=== PATIENT | male | born 2005 | race Caucasian/White ===

== ENCOUNTER 2024-01-05 01:41 | Emergency (ER) | payer OTHER ==
[2024-01-05] MEDS ORDERED: NA CHLORIDE 0.9% 1,000 ML ONE (02:07)
[2024-01-05] MEDS ORDERED: LIDOCAINE 1% 20 ML MDV ONE (02:47)
[2024-01-05 03:21] LABS: ALT/SGPT 15 U/L (16-61); AST/SGOT 11 U/L (15-37); Albumin 3.7 g/dL (3.4-5.0); Albumin/Globulin Ratio 1.2 (1.1-1.8); Alkaline Phosphatase 56 U/L (45-117); Anion Gap 7.6 mEq/L (5.0-15.0); BUN Blood Urea Nitrogen 9 mg/dL (7-18); Bicarbonate 26 mEq/L (21-32); Bilirubin Direct 0.2 mg/dL (0-0.2); Bilirubin Indirect, Calculated 0.8 mg/dL (0.2-0.8); Globulin 3.1 g/dL (2.3-3.5); Glomerular Filtration Rate 124 ml/min (=/>90); Glucose Level 103 mg/dL (74-106); Magnesium 1.9 mg/dL (1.6-2.4); Potassium 3.6 mEq/L (3.5-5.1); Protein, Total 6.8 g/dL (6.4-8.2); Sodium Level 138 mEq/L (136-145)
[2024-01-05 03:23] LABS: Troponin High Sensitivity < 3.0 pg/mL (<58.9)
[2024-01-05 03:27] LABS: Absolute Lymphocytes (CBC) 0.9 K/uL (0.7-4.9); Absolute Monocytes 0.8 K/uL (0.1-1.3); Absolute Neutrophil 9.6 K/uL (1.8-8.0); Basophils % 0.2 % (0-1.3); Eosinophils % 0.1 % (0-4.4); Hematocrit 41.9 % (39.6-49.0); Hemoglobin 14.3 g/dL (13.6-17.9); Lymphocytes % 8.2 % (15.3-44.8); MCH 31.1 pg (27.0-35.0); MCHC 34.1 g/dL (32.0-36.0); MCV 91.1 fL (80-100); MPV 7.1 fL (7.6-11.3); Neutrophils % 84.5 % (41.7-73.7); Nucleated RBC Absolute Count 0.1 (0-0); Nucleated Red Blood Cells % 0.4 % (0-0); Platelets 254 thou/uL (152-406); Red Cell Distribution Width 13.8 % (12.1-15.2)
[2024-01-05] MEDS ORDERED: NEOMYCIN/BAC/POLY OPTH 3.5GM ONE (05:20)
--- NOTE | 2024-01-05 05:29 | EDPHYS ---
Physician Documentation [facility] Name: Armando Cohn Age: 18 yrs Sex: Male : 2005 Arrival Date: 01/05/2024 Time: 01:41 Bed 26 Private MD: ED Physician Ross Mullins HPI: 01/04 01:50 This 18 yrs old Male presents to ER via Unassigned with complaints of Head sp4 Injury With LOC-Adult, Laceration To Head. 23:12 18-year-old male presents to the ER with complaint of head injury with laceration to sp4 forehead. Patient states he had syncopal episode at home and also sustained a fall against the floor causing laceration to right forehead. Patient reports history of prior syncope and workup while he was in fifth grade.. Historical: - Allergies: 01:57 No Known Allergies; bm8 - Home Meds: 01:57 None [Active]; bm8 - PMHx: 01:57 None; bm8 - PSHx: 01:58 facial reconstruction; bm8 - Immunization history:: Adult Immunizations up to date. - Infectious Disease History:: Denies. - Social history:: Smoking status: Reported history of juuling and/or vaping. Patient/guardian denies using alcohol, street drugs. - Family history:: not pertinent. ROS: 23:12 Constitutional: Negative for fever, chills, and weight loss, positive for syncope and sp4 collapse, positive for fall, positive for forehead laceration 23:12 All other systems are negative, Exam: 04:45 ECG was reviewed by the Attending Physician. EKG at 0209 normal sinus rhythm with a sp4 rate of 71, rightward axis and LVH. 23:12 Constitutional: This is a well developed, well nourished patient who is awake, alert, sp4 and in no acute distress. Head/Face: Normocephalic, positive right forehead contusion on the right forehead irregular laceration with L-shaped inferior component, no active bleeding laceration measures 4 cm Eyes: Pupils equal round and reactive to light, extra-ocular motions intact. Lids and lashes normal. Conjunctiva and sclera are not injected. Cornea within normal limits. Periorbital areas with no swelling, redness, or edema. ENT: Nares patent. No nasal discharge, no septal abnormalities noted. Tympanic membranes are normal and external auditory canals are clear. Oropharynx with no redness, swelling, or masses, exudates, or evidence of obstruction, uvula midline. Mucous membranes moist. Neck: Trachea midline, no thyromegaly or masses palpated, and no cervical lymphadenopathy. Supple, full range of motion without nuchal rigidity, or vertebral point tenderness. Chest/axilla: Normal chest wall appearance and motion. Nontender with no deformity. No lesions are appreciated. Cardiovascular: Regular rate and rhythm with a normal S1 and S2. No gallops, murmurs, or rubs. Normal PMI, no JVD. No pulse deficits. Respiratory: Lungs have equal breath sounds bilaterally, clear to auscultation and percussion. No rales, rhonchi or wheezes noted. No increased work of breathing, no retractions or nasal flaring. Abdomen/GI: Soft, with normal bowel sounds. No distension or tympany. No guarding or rebound. No evidence of tenderness throughout. Back: No spinal tenderness. No costovertebral tenderness. Skin: Warm, dry with normal turgor. Normal color with no rashes, no lesions, and no evidence of cellulitis. MS/ Extremity: Pulses equal, no cyanosis. Neurovascular intact. Full, normal range of motion. Neuro: Awake and alert, GCS 15, oriented to person, place, time, and situation. Cranial nerves II-XII grossly intact. Motor strength 5/5 in all extremities. Sensory grossly intact. Psych: Awake, alert, with orientation to person, place and time. Behavior, mood, and affect are within normal limits Vital Signs: 01:53 BP 157 / 93; Pulse 73; Resp 18; Temp 98.5; Pulse Ox 100% ; Weight 77.11 kg; Height 6 bm8 ft. 0 in. ; Pain 1/10; 03:44 BP 91 / 42; Pulse 58; Resp 14; Temp 98.5; Pulse Ox 98% ; Pain 1/10; bm8 04:35 BP 87 / 51; Pulse 48; Resp 15; Temp 98.5; Pulse Ox 97% on R/A; Pain 0/10; bm8 05:26 BP 96 / 64; Pulse 68; Resp 14; Temp 98.5; Pulse Ox 100% on R/A; Pain 0/10; bm8 01:53 Body Mass Index 23.06 (77.11 kg, 182.88 cm) bm8 01:53 Pain Scale: Adult bm8 03:44 Pain Scale: Adult bm8 04:35 Pain Scale: Adult bm8 05:26 Pain Scale: Adult bm8 [place] Coma Score: 01:59 Eye Response: spontaneous(4). Motor Response: obeys commands(6). Verbal Response: bm8 oriented(5). Total: 15. 03:44 Eye Response: spontaneous(4). Motor Response: obeys commands(6). Verbal Response: bm8 oriented(5). Total: 15. 04:45 Eye Response: spontaneous(4). Motor Response: obeys commands(6). Verbal Response: sp4 oriented(5). Total: 15. 05:26 Eye Response: spontaneous(4). Motor Response: obeys commands(6). Verbal Response: bm8 oriented(5). Total: 15. 05:32 Eye Response: spontaneous(4). Motor Response: obeys commands(6). Verbal Response: sp4 oriented(5). Total: 15. Laceration: 05:31 Wound Repair of 4cm ( 1.6in ) subcutaneous laceration to forehead -right side of the sp4 forehead just above the right eyebrow 4 cm laceration irregular shaped . Irregularly shaped.. Hemostasis noted.. Distal neuro/vascular/tendon intact. Anesthesia: Wound infiltrated with 10 mls of 1% lidocaine. Wound prep: Moderate cleansing by me, Copious irrigation. Skin closed with 19 6-0 Prolene using interrupted sutures and sterile technique. Dressed with Neosporin. Patient tolerated well. MDM: 01:56 Patient medically screened. sp4 04:44 ED course: COMPARISON: CT Head/Brain Without Contrast 01/22/2016 images without report sp4 TECHNIQUE: Head/brain axial images acquired without contrast. Coronal and sagittal reformats created. Exam performed according to departmental dose-optimization program which includes automated exposure control, adjustment of mA and/or kV according to patient size, and/or use of iterative reconstruction technique. FINDINGS: At initial time of dictation the coronal and sagittal series are markedly limited and nearly entirely cut off. When appropriate coronal and sagittal images are created then an addendum will be made. No midline shift, mass effect, intracranial hemorrhage, or hydrocephalus. Brain parenchyma unremarkable. Paranasal sinuses clear. Mastoid air cells clear. No skull fracture or significant skull lesion. IMPRESSION: 1. At initial time of dictation the coronal and sagittal series are markedly limited. When appropriate coronal and sagittal images are created then an addendum will be made. 2. Otherwise, grossly unremarkable CT head/brain without contrast. . 05:32 Data reviewed: vital signs, nurses notes. 23:12 Differential diagnosis: Contusion of Hematoma on Laceration of Intracranial bleed- sp4 Concussion cerebral contusion. 01/04 01:56 Order name: Basic Metabolic Panel; Complete Time: 03:42 sp4 01/04 01:56 Order name: CBC with Diff; Complete Time: 03:42 4 01/04 01:56 Order name: LFT's; Complete Time: 03:42 4 01/04 01:56 Order name: Magnesium; Complete Time: 03:42 4 01/04 01:56 Order name: Troponin HS; Complete Time: 03:42 sp4 01/04 01:57 Order name: CT Head Brain wo Cont 4 01/04 01:50 Order name: Dressing - Wound; Complete Time: 02:57 4 01/04 01:50 Order name: Gloves, Sterile; Complete Time: 02:57 4 01/04 01:50 Order name: Setup Suture Tray; Complete Time: 02:57 4 01/04 01:56 Order name: Cardiac monitoring; Complete Time: 02:12 4 01/04 01:56 Order name: EKG - Nurse/Tech; Complete Time: 02:12 4 01/04 01:56 Order name: IV Saline Lock; Complete Time: 02:12 01/04 01:56 Order name: Labs collected and sent; Complete Time: 02:12 EC:45 Rate is 71 beats/min. Rhythm is regular, Normal Sinus Rhythm. QRS [place] is Normal. Right sp4 axis deviation noted. IA interval is normal. QRS interval is normal. QT interval is normal. No Q waves. T waves are Normal. No ST changes noted. Clinical impression: LVH and No evidence of ischemia. Interpreted by me. Reviewed by me. Administered Medications: 02:12 Drug: NS 0.9% IV 1000 ml IV at 1 bolus Per protocol; 1000 mL bolus Route: IV; Rate: 1 bm8 bolus; Site: right forearm; 05:07 Follow up: Response: No adverse reaction; IV Status: Completed infusion; IV Intake: bm8 1000ml 05:07 Drug: Lidocaine Infiltration (1 %) 20 ml 20 ml Infiltration once; to bedside {Note: bm8 administered by Dr. Mullins.} Volume: 20 ml; Route: Infiltration; Site: wound; 05:26 Drug: Erpqpqyh-Efwsqdanzg-Gugdpiryt Topical Ointment 1 application Topical once Route: bm8 Topical; Site: affected area; 05:26 Follow up: Response: No adverse reaction bm8 Disposition Summary: 01/05/24 05:28 Discharge Ordered Problem: new sp4 Symptoms: have improved sp4 Condition: Stable sp4 Diagnosis - Syncope and collapse,, acute head injury, forehead laceration, sp4 Followup: sp4 - With: Lexx Thompson MD - When: 7 - 10 days - Reason: Recheck today's complaints Discharge Instructions: - Discharge Summary Sheet sp4 - Facial Laceration, Nlxg-zh-Ikex sp4 Forms: - Patient Portal Instructions sp4 Signatures: Dispatcher [employer] Ross Olivares MD MD sp4 Roberto Salgado, RN RN bm8 Corrections: (The following items were deleted from the chart) 01:57 01:57 BASIC METABOLIC PANEL+C.LAB.BRZ ordered. EDMS EDMS 01:57 01:57 CBC+H.LAB.BRZ ordered. EDMS EDMS 01:57 01:57 HEPATIC FUNCTION+C.LAB.BRZ ordered. EDMS EDMS 01:57 01:57 MAGNESIUM+C.LAB.BRZ ordered. EDMS EDMS 01:57 01:57 Troponin High Sensitivity+C.LAB.BRZ ordered. EDMS EDMS
--- NOTE | 2024-01-05 05:29 | ER ---
Nurse's Notes [facility] Name: Armando Cohn Age: 18 yrs Sex: Male : 2005 Arrival Date: 01/05/2024 Time: 01:41 Bed 26 Private MD: Diagnosis: Syncope and collapse,, acute head injury, forehead laceration, Presentation: 01/04 01:51 Chief complaint: Patient states: I felt tired, kind of like I do when I am dehydrated, vc1 I stood up to go to the couch and passed out hitting my head on the wall. 01:53 Chief complaint: Patient states: I passed out and hit the front of my head. Coronavirus bm8 screen: At this time, the client does not indicate any symptoms associated with coronavirus-19. Ebola Screen: Patient negative for fever greater than or equal to 101.5 degrees Fahrenheit, and additional compatible Ebola Virus Disease symptoms Patient denies exposure to infectious person. Patient denies travel to an Ebola-affected area in the 21 days before illness onset. No symptoms or risks identified at this time. Initial Sepsis Screen: Does the patient meet any 2 criteria? No. Patient's initial sepsis screen is negative. Does the patient have a suspected source of infection? No. Patient's initial sepsis screen is negative. Risk Assessment: Do you want to hurt yourself or someone else? Patient reports no desire to harm self or others. Onset of symptoms was January 05, 2024 at 00:00. 01:53 Method Of Arrival: Ambulatory bm8 01:53 Acuity: JAMIE 3 bm8 Triage Assessment: 01:58 General: Appears in no apparent distress. comfortable, Behavior is calm, cooperative, bm8 appropriate for age. Pain: Complains of pain in forehead Pain does not radiate. Pain currently is 1 out of 10 on a pain scale. EENT: No deficits noted. No signs and/or symptoms were reported regarding the EENT system. Neuro: No deficits noted. Level of Consciousness is awake, alert, obeys commands, Oriented to person, place, time, situation, Appropriate for age. Cardiovascular: No deficits noted. Capillary refill < 3 seconds Patient's skin is warm and dry. Respiratory: Airway is patent Respiratory effort is even, unlabored, Respiratory pattern is regular, symmetrical. GI: No deficits noted. No signs and/or symptoms were reported involving the gastrointestinal system. : No deficits noted. No signs and/or symptoms were reported regarding the genitourinary system. Derm:. Musculoskeletal: No deficits noted. No signs and/or symptoms reported regarding the musculoskeletal system. Injury Description: Laceration sustained to forehead is clean, full thickness, 0.5 to 2.5 cm long, not bleeding, was sustained 1-2 hours ago. Historical: - Allergies: :57 No Known Allergies; bm8 - Home Meds: :57 None [Active]; bm8 - PMHx: :57 None; bm8 - PSHx: 01:58 facial reconstruction; bm8 - Immunization history:: Adult Immunizations up to date. - Infectious Disease History:: Denies. - Social history:: Smoking status: Reported history of juuling and/or vaping. Patient/guardian denies using alcohol, street drugs. - Family history:: not pertinent. Screenin:59 [facility] ED Fall Risk Assessment (Adult) History of falling in the last 3 months, bm8 including since admission Yes- single mechanical fall (1 pt) Confusion or Disorientation No (0 pts) Intoxicated or Sedated No (0 pts) Impaired Gait No (0 pts) Mobility Assist Device Used No (0 pt) Altered Elimination No (0 pt) Score/Fall Risk Level 0 - 2 = Low Risk Oriented to surroundings, Maintained a safe environment, Educated pt \T\ family on fall prevention, incl call for assistance when getting out of bed, Assessed \T\ reinforced patient's understanding of fall precautions. Abuse screen: Denies threats or abuse. Nutritional screening: No deficits noted. Tuberculosis screening: No symptoms or risk factors identified. Assessment: :59 Reassessment: see triage note. bm8 03:44 Reassessment: Patient appears in no apparent distress at this time. Patient and/or bm8 family updated on plan of care and expected duration. Pain level reassessed. Patient is alert, oriented x 3, equal unlabored respirations, skin warm/dry/pink. awaiting results from CT Patient denies pain at this time. 04:35 Reassessment: Patient and/or family updated on plan of care and expected duration. Pain bm8 level reassessed. Patient is alert, oriented x 3, equal unlabored respirations, skin warm/dry/pink. pt updated on cause of wait. pt is resting with eyes closed breathing is even unlabored at this time. Patient denies pain at this time. 05:26 General: Appears in no apparent distress. comfortable, Behavior is calm, cooperative, bm8 appropriate for age. Pain: Denies pain. Neuro: No deficits noted. Level of Consciousness is awake, alert, obeys commands, Oriented to person, place, time, situation. Cardiovascular: Denies chest pain, Capillary refill < 3 seconds Patient's skin is warm and dry. Respiratory: Airway is patent Trachea midline Respiratory effort is even, unlabored, Respiratory pattern is regular, symmetrical. Vital Signs: 01:53 BP 157 / 93; Pulse 73; Resp 18; Temp 98.5; Pulse Ox 100% ; Weight 77.11 kg; Height 6 bm8 ft. 0 in. ; Pain 1/10; 03:44 BP 91 / 42; Pulse 58; Resp 14; Temp 98.5; Pulse Ox 98% ; Pain 1/10; bm8 04:35 BP 87 / 51; Pulse 48; Resp 15; Temp 98.5; Pulse Ox 97% on R/A; Pain 0/10; bm8 05:26 BP 96 / 64; Pulse 68; Resp 14; Temp 98.5; Pulse Ox 100% on R/A; Pain 0/10; bm8 01:53 Body Mass Index 23.06 (77.11 kg, 182.88 cm) bm8 01:53 Pain Scale: Adult bm8 03:44 Pain Scale: Adult bm8 04:35 Pain Scale: Adult bm8 05:26 Pain Scale: Adult bm8 [place] Coma Score: 01:59 Eye Response: spontaneous(4). Motor Response: obeys commands(6). Verbal Response: bm8 oriented(5). Total: 15. 03:44 Eye Response: spontaneous(4). Motor Response: obeys commands(6). Verbal Response: bm8 oriented(5). Total: 15. 04:45 Eye Response: spontaneous(4). Motor Response: obeys commands(6). Verbal Response: sp4 oriented(5). Total: 15. 05:26 Eye Response: spontaneous(4). Motor Response: obeys commands(6). Verbal Response: bm8 oriented(5). Total: 15. 05:32 Eye Response: spontaneous(4). Motor Response: obeys commands(6). Verbal Response: sp4 oriented(5). Total: 15. ED Course: 01:42 Patient arrived in ED. [id number] 01:50 Ross Mullins MD is Attending Physician. sp4 01:53 Roberto Salgado, RN is Primary Nurse. bm8 01:57 Triage completed. bm8 01:58 Arm band placed on left wrist. bm8 01:59 Patient has correct armband on for positive identification. Bed in low position. Call bm8 light in reach. Side rails up X 1. Adult w/ patient. Provided Education on: post er care. Client placed on continuous cardiac and pulse oximetry monitoring. NIBP monitoring applied. varnish melter on. Pulse ox on. NIBP on. Door closed. Noise minimized. Warm blanket given. Verbal reassurance given. socks provided. 01:59 Assist provider with laceration repair on forehead that was 2.5 cm. or less using bm8 sutures. Set up tray. Performed by Ross Mullins MD Dressed with 4X4s, Patient tolerated. Wound care: to laceration located on forehead was cleaned with soap and water, irrigated with normal saline, dressed with Neosporin, 4X4s, ice pack applied. Patient tolerated well. 01:59 Inserted saline lock: 22 gauge in right forearm, using aseptic technique. Blood bm8 collected. 02:17 CT Head Brain wo Cont In Process Unspecified. EDMS 05:28 Lexx Thompson MD is Referral Physician. sp4 05:28 IV discontinued, intact, bleeding controlled, No redness/swelling at site. Pressure bm8 dressing applied. Administered Medications: 02:12 Drug: NS 0.9% IV 1000 ml IV at 1 bolus Per protocol; 1000 mL bolus Route: IV; Rate: 1 bm8 bolus; Site: right forearm; 05:07 Follow up: Response: No adverse reaction; IV Status: Completed infusion; IV Intake: bm8 1000ml 05:07 Drug: Lidocaine Infiltration (1 %) 20 ml 20 ml Infiltration once; to bedside {Note: bm8 administered by Dr. Mullins.} Volume: 20 ml; Route: Infiltration; Site: wound; 05:26 Drug: Ueyptgpi-Utlhxxgrob-Ewqkdyuqt Topical Ointment 1 application Topical once Route: bm8 Topical; Site: affected area; 05:26 Follow up: Response: No adverse reaction bm8 Medication: 01:59 VIS not applicable for this client. bm8 Intake: 05:07 IV: 1000ml; Total: 1000ml. bm8 Outcome: 05:28 Discharge ordered by . sp4 05:28 Discharged to home ambulatory, bm8 05:28 Condition: stable 05:28 Discharge instructions given to patient, friend, Instructed on discharge instructions, follow up and referral plans. no drinking with medication, no driving heavy equipment, medication usage, safety practices, Demonstrated understanding of instructions, follow-up care, medications, 05:39 Patient left the ED. bm8 Signatures: Dispatcher [employer] EDMS Priscilla Hou [id number] Regina Porter, RN RN vc1 Ross Mullins MD MD sp4 Roberto Salgado RN RN bm8
[2024-01-05 06:01] VITALS: BP 96/64; TEMP 98.5; O2SAT 100
--- NOTE | 2024-01-06 10:17 | RAD REPORT ---
EXAM DESCRIPTION: ADDENDUM #1 ADDENDUM: Appropriate coronal and sagittal brain and bone images now submitted. Surgical plate at left orbital inferior aspect. Normal CT brain appearance. Electronically signed by: Brayan Brown MD 01/05/2024 03:26 AM Front[employer] End of Addendum EXAM: CT Head/Brain Without Contrast CLINICAL HISTORY: Syncope, head injury COMPARISON: CT Head/Brain Without Contrast 01/22/2016 images without report TECHNIQUE: Head/brain axial images acquired without contrast. Coronal and sagittal reformats created . Exam performed according to departmental dose-optimization program which includes automated exposur e control, adjustment of mA and/or kV according to patient size, and/or use of iterative reconstructi on technique. FINDINGS: At initial time of dictation the coronal and sagittal series are markedly limited and near ly entirely cut off. When appropriate coronal and sagittal images are created then an addendum will be made. No midline shift, mass effect, intracranial hemorrhage, or hydrocephalus. Brain parenchyma unremarkable. Paranasal sinuses clear. Mastoid air cells clear. No skull fracture or significant skull lesion. IMPRESSION: 1. At initial time of dictation the coronal and sagittal series are markedly limited. When appropriate coronal and sagittal images are created then an addendum will be made. 2. Otherwise, grossly unremarkable CT head/brain without contrast. Electronically signed by: Brayan Brown MD 01/05/2024 03:08 AM [employer] Due to temporary technical issues with the PACS/Fluency reporting system, reports are being signed by the in house radiologist without review as a courtesy to ensure prompt reporting. The interpreting r adiologist is fully responsible for the content of the report.
== END 2024-01-05 05:39 | disposition home or self-care (01) ==
LOC: ER 01:41
PROC: 0HQ1XZZ Repair Face Skin, External Approach (ICD-10-PCS; principal; 2024-01-05)
DX: S01.81XA Laceration without foreign body of other part of head, initial encounter (principal); R55 Syncope and collapse
CPT/HCPCS: 85025; 80048; 36415; 83735; 80076; 84484; 70450; 12013; J2001; J7030